=== PATIENT | female | born 1980 | race African-American/Black ===

== ENCOUNTER 2021-01-04 12:16 | Emergency (ER) | payer OTHER ==
[~2021-01-04] VITALS: Ht 160 cm; Wt 88.2 kg
[2021-01-04 12:18] VITALS: BP 118/68; Ht 160 cm; Wt 88.2 kg
[2021-01-04] MEDS ORDERED: METHOCARBAMOL500 MG PO (13:07)
== END 2021-01-04 13:50 | disposition home or self-care (01) ==
LOC: D.ER 12:16
DX: S16.1XXA Strain of muscle, fascia and tendon at neck level, initial encounter (principal); V89.2XXA Person injured in unspecified motor-vehicle accident, traffic, initial encounter; Y93.9 Activity, unspecified; Y92.9 Unspecified place or not applicable; M54.2 Cervicalgia